=== PATIENT | female | born 1975 | race Caucasian/White ===

== ENCOUNTER 2018-03-31 11:22 | Emergency (ER) | payer SELFPAY ==
[~2018-03-31] VITALS: Ht 167.6 cm; Wt 56.0 kg
[2018-03-31 11:29] VITALS: BP 136/84
[2018-03-31 11:56] LABS: BASO # 0.1 x10^3/uL (0.0-0.2); BASO % 1 % (0-3); EOS # 0.2 x10^3/uL (0.0-0.7); EOS % 3 % (0-3); HEMATOCRIT 44.8 % (36.0-47.0); HEMOGLOBIN 14.9 g/dL (12.0-15.5); LYMPH # 2.1 x10^3/uL (1.0-4.8); LYMPH % 32 % (24-48); MEAN CORPUSCULAR HEMOGLOBIN 31 pg (25-35); MEAN CORPUSCULAR HGB CONC 33 g/dL (31-37); MEAN CORPUSCULAR VOLUME 94 fL (79-100); MONO # 0.4 x10^3/uL (0.0-1.1); MONO % 6 % (0-9); NEUT # 3.9 x10^3uL (1.8-7.7); NEUT % 60 % (31-73); PLATELET COUNT 253 x10^3/uL (140-400); RED BLOOD COUNT 4.79 x10^6/uL (3.50-5.40); RED CELL DISTRIBUTION WIDTH 13.1 % (11.5-14.5); WHITE BLOOD COUNT 6.6 x10^3/uL (4.0-11.0)
--- NOTE | 2018-03-31 11:56 | PHYS DOC ---
Past History Past Medical History: Other Past Surgical History: Appendectomy, , Other Alcohol Use: Occasionally Drug Use: Marijuana Adult General Chief Complaint Chief Complaint: ABDOMINAL PAIN HPI HPI 42-year-old female presents with lower abdominal pain. Patient has had increasing pain for last couple of months. She describes it as a cramping sensation like he would have with menstruation. She had an ablation in 2014. She has not had regular menses since then. She does get some occasional light spotting. The pain doesn't seem to correlate with the spotting. It has no correlation with eating or not eating. She is concerned because it just seems to be gradually increasing. She has been taking Tylenol and ibuprofen. She denies dysuria or increased urinary frequency. Denies vaginal discharge. She does have some intermittent nausea, but is able to eat. She has had an overall decreased appetite the last couple months. She believes she may have lost up to 10 pounds. The patient has felt overall fatigue more frequently. Review of Systems Review of Systems Constitutional: Denies fever or chills [] Eyes: Denies change in visual acuity, redness, or eye pain [] HENT: Denies nasal congestion or sore throat [] Respiratory: Denies cough or shortness of breath [] Cardiovascular: No additional information not addressed in HPI [] GI: Lower abdominal pain, nausea. Denies vomiting, bloody stools or diarrhea [] : Denies dysuria or hematuria [] Musculoskeletal: Denies back pain or joint pain [] Integument: Denies rash or skin lesions [] Neurologic: Denies headache, focal weakness or sensory changes [] Endocrine: Denies polyuria or polydipsia [] All other systems were reviewed and found to be within normal limits, except as documented in this note. Current Medications Current Medications Current Medications Medications (Trade) Dose Ordered Sig/Dee Start Time Stop Time Status Last Admin Dose Admin Iohexol (Omnipaque 300 Mg/ml) 75 ml 1X ONCE 03/31/18 12:00 03/31/18 12:01 UNV Allergies Allergies Allergies Coded Allergies Type Severity Reaction Last Updated Verified meperidine Allergy Unknown 11/13/14 Yes penicillin Allergy Unknown 11/13/14 Yes Physical Exam Physical Exam Constitutional: Well developed, well nourished, no acute distress, non-toxic appearance. [] HENT: Normocephalic, atraumatic, bilateral external ears normal, oropharynx moist, no oral exudates, nose normal. [] Eyes: PERRLA, EOMI, conjunctiva normal, no discharge. [] Neck: Normal range of motion, no tenderness, supple, no stridor. [] Cardiovascular:Heart rate regular rhythm, no murmur [] Lungs & Thorax: Bilateral breath sounds clear to auscultation [] Abdomen: Suprapubic abdominal pain, soft, no rebound or guarding. [] Skin: Warm, dry, no erythema, no rash. [] Back: No tenderness, no CVA tenderness. [] Extremities: No tenderness, no cyanosis, no clubbing, ROM intact, no edema. [] Neurologic: Alert and oriented X 3, normal motor function, normal sensory function, no focal deficits noted. [] Psychologic: Affect normal, judgement normal, mood normal. [] Current Patient Data Vital Signs Vital Signs Date Time Temp Pulse Resp B/P (MAP) Pulse Ox O2 Delivery O2 Flow Rate FiO2 03/31/18 11:29 98.2 72 20 100 Room Air EKG EKG [] Radiology/Procedures Radiology/Procedures [] Impressions: PQRS Compliance Statement: One or more of the following individualized dose reduction techniques were utilized for this examination: 1. Automated exposure control 2. Adjustment of the mA and/or kV according to patient size 3. Use of iterative reconstruction technique CT abdomen/pelvis with contrast 03/31/2018 12:00 PM INDICATION: Lower pelvic pain and cramping. Worse on left side. COMPARISON: None available TECHNIQUE: Multiple axial CT images of the abdomen and pelvis were obtained after the intravenous administration of 75 Omnipaque 300 mL Isovue-370. Coronal and sagittal reformats are provided. FINDINGS: Visualized portions of the lung bases are clear. Heart size is within normal limits. No suspicious hepatic masses are identified. Liver is homogeneous in enhancement. Spleen, bilateral adrenal glands, and pancreas are normal in appearance. Gallbladder is present without adjacent inflammatory changes. The abdominal aorta is normal in course and caliber. There are no pathologically enlarged lymph nodes in the abdomen and pelvis. There is no abdominal free fluid. There is no free intraperitoneal air. The kidneys enhance symmetrically. There is no suspicious renal mass. There is no hydronephrosis. There are no suspected calculi within the kidneys, ureters or urinary bladder. The appendix not definitively visualized. Small and large bowel are normal in caliber. There is no evidence for bowel obstruction. There are no pericolonic inflammatory changes. No pericecal inflammatory changes are identified. Urinary bladder is within normal limits given degree of distention. Tubal ligation devices are identified bilaterally. Follicular changes are identified in the adnexa bilaterally. Trace pelvic free fluid is presumed physiologic. No suspicious osseous abnormality is identified. IMPRESSION: 1. Uterus and adnexa are normal by CT. Follicular changes are identified bilaterally. Trace pelvic free fluid may be physiologic. 2. No evidence for bowel obstruction or inflammation. Appendix is not definitively visualized. Electronically signed by: Louie Mckenzie MD (03/31/2018 12:25 PM) [facility] DICTATED AND SIGNED BY: LOUIE MCKENZIE MD DATE: 03/31/18 1220 CC: YENY BORJAS DO; PCP,SHAKIRA Course & Med Decision Making Course & Med Decision Making Pertinent Labs and Imaging studies reviewed. (See chart for details) Patient's labs are unremarkable. Her urinalysis is negative for infection. Her CT scan shows focal or changes in the adnexa and trace free fluid, but this is thought to be physiologic. The uterus appears normal. See official report above for more details. I am unsure of the nature the patient's pain. She does have a history of endometriosis. This is a possibility. I have strongly recommended that she work on getting insurance, establish with a PCP, [employer]. She is stable for discharge at this time. [] Dragon Disclaimer Dragon Disclaimer This electronic medical record was generated, in whole or in part, using a voice recognition dictation system. Departure Departure: Referrals: PCPSHAKIRA (PCP) Scripts Hydrocodone Bit/Acetaminophen (NORCO 5-325 TABLET) 1 Each Tablet 1 TAB PO PRN Q6HRS PRN for PAIN, #10 TAB 0 Refills Prov: YENY BORJAS DO 03/31/18 YENY BORJAS DO Mar 31, 2018 11:56
[2018-03-31 12:00] LABS: BACTERIA,URINE FEW /HPF (0-FEW); BILIRUBIN,URINE NEG (NEG); CLARITY,URINE CLEAR; COLOR,URINE YELLOW; GLUCOSE,URINE NEG (NEG); NITRITE,URINE NEG (NEG); SQUAMOUS EPITHELIAL CELL,UR FEW /LPF; UROBILINOGEN,URINE 0.2 mg/dL (0.2 mg/dL); WBC,URINE OCC /HPF (0-4)
[2018-03-31] MEDS ORDERED: IOHEXOL 300 MG/ML 75 ML VIAL. IV ONE (12:00)
[2018-03-31 12:01] LABS: U PREG PATIENT NEGATIVE (NEG)
[2018-03-31 12:01] LABS: ALBUMIN 3.8 g/dL (3.4-5.0); ALBUMIN/GLOBULIN RATIO 1.2 (1.0-1.7); CALCIUM 8.8 mg/dL (8.5-10.1); CREATININE 0.7 mg/dL (0.6-1.0); GFR 92.7; POTASSIUM 4.1 mmol/L (3.5-5.1); TOTAL BILIRUBIN 0.4 mg/dL (0.2-1.0); TOTAL PROTEIN 6.9 g/dL (6.4-8.2)
--- NOTE | 2018-03-31 12:29 | RAD ---
PQRS Compliance Statement: One or more of the following individualized dose reduction techniques were utilized for this examination: 1. Automated exposure control 2. Adjustment of the mA and/or kV according to patient size 3. Use of iterative reconstruction technique CT abdomen/pelvis with contrast 03/31/2018 12:00 PM INDICATION: Lower pelvic pain and cramping. Worse on left side. COMPARISON: None available TECHNIQUE: Multiple axial CT images of the abdomen and pelvis were obtained after the intravenous administration of 75 Omnipaque 300 mL Isovue-370. Coronal and sagittal reformats are provided. FINDINGS: Visualized portions of the lung bases are clear. Heart size is within normal limits. No suspicious hepatic masses are identified. Liver is homogeneous in enhancement. Spleen, bilateral adrenal glands, and pancreas are normal in appearance. Gallbladder is present without adjacent inflammatory changes. The abdominal aorta is normal in course and caliber. There are no pathologically enlarged lymph nodes in the abdomen and pelvis. There is no abdominal free fluid. There is no free intraperitoneal air. The kidneys enhance symmetrically. There is no suspicious renal mass. There is no hydronephrosis. There are no suspected calculi within the kidneys, ureters or urinary bladder. The appendix not definitively visualized. Small and large bowel are normal in caliber. There is no evidence for bowel obstruction. There are no pericolonic inflammatory changes. No pericecal inflammatory changes are identified. Urinary bladder is within normal limits given degree of distention. Tubal ligation devices are identified bilaterally. Follicular changes are identified in the adnexa bilaterally. Trace pelvic free fluid is presumed physiologic. No suspicious osseous abnormality is identified. IMPRESSION: 1. Uterus and adnexa are normal by CT. Follicular changes are identified bilaterally. Trace pelvic free fluid may be physiologic. 2. No evidence for bowel obstruction or inflammation. Appendix is not definitively visualized. Electronically signed by: Dee Mckenzie MD (03/31/2018 12:25 PM) [facility]
[2018-03-31] MEDS ORDERED: HYDR-3165 PO (13:23)
== END 2018-03-31 13:15 | disposition home or self-care (01) ==
LOC: ER 11:22
DX: R10.2 Pelvic and perineal pain (principal); R10.30 Lower abdominal pain, unspecified; R11.0 Nausea; Z90.89 Acquired absence of other organs; Z98.890 Other specified postprocedural states; Z88.0 Allergy status to penicillin; Z88.8 Allergy status to other drugs, medicaments and biological substances
CPT/HCPCS: 36415; 74177; 80053; 81001; 81025; 85025; 99284; Q9967

== ENCOUNTER 2018-04-13 07:15 | Emergency (ER) | payer SELFPAY ==
[~2018-04-13] VITALS: Ht 167.6 cm; Wt 56.0 kg
[2018-04-13 07:15] VITALS: BP 122/67
[~2018-04-13 07:15] MED LIST: HYDR-3165 PO
--- NOTE | 2018-04-13 07:31 | PHYS DOC ---
Past History Past Medical History: Other Past Surgical History: Appendectomy, , Other Alcohol Use: Occasionally Drug Use: Marijuana Adult General Chief Complaint Chief Complaint: EARACHE/EAR PAIN HPI HPI 42-year-old female presents with sudden onset of left ear pain. The patient woke up overnight with left-sided ear pain. She has had viral URI symptoms such as congestion, cough, and runny nose for about one week. She has not had decrease in her hearing or ear pain until early this morning. Patient states that it feels like heavy pressure in her ear. It has made her mildly nauseous. She denies fever or chills at home. Review of Systems Review of Systems Constitutional: Denies fever or chills [] Eyes: Denies change in visual acuity, redness, or eye pain [] HENT: Denies nasal congestion or sore throat. [] Respiratory: Denies cough or shortness of breath [] Cardiovascular: No additional information not addressed in HPI [] GI: Denies abdominal pain, nausea, vomiting, bloody stools or diarrhea [] : Denies dysuria or hematuria [] Musculoskeletal: Denies back pain or joint pain [] Integument: Denies rash or skin lesions [] Neurologic: Denies headache, focal weakness or sensory changes [] Endocrine: Denies polyuria or polydipsia [] All other systems were reviewed and found to be within normal limits, except as documented in this note. Allergies Allergies Allergies Coded Allergies Type Severity Reaction Last Updated Verified meperidine Allergy Unknown 11/13/14 Yes penicillin Allergy Unknown 11/13/14 Yes Physical Exam Physical Exam Constitutional: Well developed, well nourished, no acute distress, non-toxic appearance. [] HENT: Normocephalic, atraumatic, bilateral external ears normal, oropharynx moist, no oral exudates, nose normal. Left tympanic membrane erythematous and bulging [] Eyes: PERRLA, EOMI, conjunctiva normal, no discharge. [] Neck: Normal range of motion, no tenderness, supple, no stridor. [] Cardiovascular:Heart rate regular rhythm, no murmur [] Lungs & Thorax: Bilateral breath sounds clear to auscultation [] Abdomen: Bowel sounds normal, soft, no tenderness, no masses, no pulsatile masses. [] Skin: Warm, dry, no erythema, no rash. [] Back: No tenderness, no CVA tenderness. [] Extremities: No tenderness, no cyanosis, no clubbing, ROM intact, no edema. [] Neurologic: Alert and oriented X 3, normal motor function, normal sensory function, no focal deficits noted. [] Psychologic: Affect normal, judgement normal, mood normal. [] EKG EKG [] Radiology/Procedures Radiology/Procedures [] Course & Med Decision Making Course & Med Decision Making Pertinent Labs and Imaging studies reviewed. (See chart for details) Patient appears to have a left otitis media. She has an allergy to penicillin that is a rash. I'll prescribe Cefdinir for 10 days. [] Dragon Disclaimer Dragon Disclaimer This electronic medical record was generated, in whole or in part, using a voice recognition dictation system. Departure Departure: Referrals: PCPSHAKIRA (PCP) YENY BORJAS DO Apr 13, 2018 07:31
[2018-04-13] MEDS ORDERED: CEFD300C PO (07:34)
== END 2018-04-13 07:39 | disposition home or self-care (01) ==
LOC: ER 07:15
DX: H66.92 Otitis media, unspecified, left ear (principal); Z88.0 Allergy status to penicillin; Z88.8 Allergy status to other drugs, medicaments and biological substances
CPT/HCPCS: 99283

== ENCOUNTER 2020-02-23 21:33 | Emergency (ER) | payer OTHER ==
[~2020-02-23] VITALS: Ht 167.6 cm; Wt 57.5 kg
[~2020-02-23 21:33] MED LIST changes: +CEFD300C PO
--- NOTE | 2020-02-23 21:56 | PHYS DOC ---
Past History Past Medical History: Anemia, Anxiety, GERD, Other Past Surgical History: Appendectomy, , Tubal ligation, Other Past Surgical History Uterine ablation, tubal ligation done with coils Smoking: Cigarettes Alcohol Use: Occasionally Drug Use: Marijuana General Adult EDM: Chief Complaint: CHEST PAIN HPI: HPI: ".. I ve been having this chest discomfort... for a few days .. now... just feels..off...".." Just not been right since about sunday.. reflux..my abdomen up set.. some diarrhea... it just the chest discomfort constant.." Patient is a 44 year old female who presents with above hx and complaints malaise, myalgia, arthralgia, chest discomfort, increased reflux, and dyspnea. Pt. states symptoms started on Sunday. Pt. was evaluated at [facility] for the chest discomfort and malaise on 02/20/20. Reportedly x-rays and labs at that time showed no acute findings. [place] her chest discomfort at the time was chest wall. Was advised to take naproxen twice a day for discomfort follow-up with primary care. Patient was prescribed a course of Zithromax and nasal steroid and MDI. Patient yet has not been able to schedule a primary care visit but because of persistent discomfort presented to the emergency department tonight for further evaluation. Patient denies any previous history of cardiac disorder. Patient does have a history of reflux. Has had past history of anemia caused by vaginal bleeding and eventually had an ablation. Patient also has history of endometriosis. Patient does still smoke and attempting to reduce tobacco use. Patient has not had flu vaccination or Pneumovax. No recent travel outside of [facility]. No specific ill contacts other than exposed to grandson who had episode of diarrhea and fever. Review of Systems: Review of Systems: Constitutional: Subjective fever or chills Eyes: Denies change in visual acuity HENT: History of nasal congestion and sore throat Respiratory: History of nonproductive cough and shortness of breath Cardiovascular: History of a chest discomfort GI: Denies abdominal pain, , vomiting, bloody stools or diarrhea . Complains of nausea and reflux. No history of tarry stools. : Denies dysuria Musculoskeletal: Complains of generalized myalgia and arthralgia Integument: Denies rash Neurologic: Denies headache, focal weakness or sensory changes Endocrine: Denies polyuria or polydipsia Lymphatic: Denies swollen glands Psychiatric: Complains of anxiety Family History: Family History: There is family history of cardiac disorders starting age 50s Current Medications: Current Meds: See nursing for home meds Allergies: Allergies: Allergies Coded Allergies Type Severity Reaction Last Updated Verified meperidine Allergy Intermediate 02/23/20 Yes penicillin Allergy Intermediate 02/23/20 Yes Physical Exam: PE: Constitutional: Moderate distress, non-toxic appearance. [] HENT: Normocephalic, atraumatic, bilateral external ears normal, oropharynx moist, mild injection of pharynx postnasal drainage, no oral exudates, nose swollen turbinates with clear rhinorrhea Eyes: PERRLA, EOMI, conjunctiva normal, no discharge. [] Neck: Normal range of motion, no tenderness, supple, no stridor. [] Cardiovascular:Heart rate regular rhythm, no murmur [] Lungs & Thorax: Bilateral breath sounds equal apex with scattered wheezes on auscultation [] Abdomen: Bowel sounds normal, soft, no tenderness, no masses, no pulsatile masses. Old surgical scar Skin: Warm, dry, no erythema, no rash. [] Back: No tenderness, no CVA tenderness. [] Extremities: No tenderness, no cyanosis, no clubbing, ROM intact, no edema. No cording appreciated Neurologic: Alert and oriented X 3, normal motor function, normal sensory function, no focal deficits noted. [] Psychologic: Affect anxious, judgement normal, mood normal. [] EKG: EKG: My interpretation of EKG shows a sinus rhythm at 82 bpm. Does have a slightly prolonged [place] interval of 214 ms. No findings of acute STEMI with contralateral changes. [] Radiology/Procedures: Radiology/Procedures: [][address] [address] IMAGING REPORT Signed PATIENT: SOHAIL LOZAUNT: [id number] : 1975 LOCATION: ER AGE: 44 SEX: F EXAM STATUS: REG ER ORD. PHYSICIAN: FADIA MUNROE MD REASON: cp PROCEDURE: PORTABLE CHEST 1V Exam: Chest one view INDICATION: Chest pain TECHNIQUE: Frontal view of the chest Comparisons: None FINDINGS: The cardiomediastinal silhouette and pulmonary vessels are within normal limits. The lung and pleural spaces are clear. IMPRESSION: No acute cardiopulmonary process. Electronically signed by: Noy Oliveira MD (02/23/2020 11:16 PM) [facility] DICTATED AND SIGNED BY: NOY OLIVEIRA MD DATE: 02/23/20 2834 CC: FADIA MUNROE MD; PCP,NO ~ Heart Score: HEART Score for Chest Pain: HEART Score for Chest Pain Response (Comments) Value History Slighlty/Non-Suspicious 0 ECG Normal 0 Age < 45 0 Risk Factors 1 or 2 Risk Factors 1 Troponin < Normal Limit 0 Total 1 Risk Factors: Risk Factors: DM, Current or recent (<one month) smoker, HTN, HLP, family history of CAD, obesity. Risk Scores: Score 0 - 3: 2.5% MACE over next 6 weeks - Discharge Home Score 4 - 6: 20.3% MACE over next 6 weeks - Admit for Clinical Observation Score 7 - 10: 72.7% MACE over next 6 weeks - Early Invasive Strategies Course & Med Decision Making: Course & Med Decision Making Pertinent Labs and Imaging studies reviewed. (See chart for details) Reviewed labs and EKG and x-rays with patient. Patient declined admission at this time. Patient reports improvement of symptoms. Patient take meds as previous directed. Patient can schedule a follow-up at [facility]. Encourage patient to continue her attempts to stop smoking. Patient to go on a clear fluid diet for the next couple days. Take Pepcid twice a day. Keep follow-up with primary care. Return if any concerns. Take Zofran for nausea as needed. Patient self isolate for 10 days. Wear a mask when around others that covers her nose and mouth at all times. Impression: 1. Viral Syndrome 2. GERD 3. Chest discomfort [] Dragon Disclaimer: Dragon Disclaimer: This electronic medical record was generated, in whole or in part, using a voice recognition dictation system. Departure Departure: Referrals: PCPSHAKIRA (PCP) Scripts Ondansetron Hcl (ZOFRAN) 4 Mg Tablet 8 MG PO QIDPRN PRN for NAUSEA/VOMITING, #30 TAB Prov: FADIA MUNROE MD 02/24/20 Famotidine (PEPCID) 20 Mg Tablet 20 MG PO BID for GERD for 30 Days, #60 TAB Prov: FADIA MUNROE MD 02/24/20 Perez Disclaimer This chart was dictated in whole or in part using Voice Recognition software in a busy, high-work load, and often noisy Emergency Department environment. It may contain unintended and wholly unrecognized errors or omissions. FADIA MUNROE MD Feb 23, 2020 21:56
[2020-02-23] MEDS ORDERED: IV RINGERS SOLUTION,LACTATED 1,000 ML IV SCH (21:58)
[2020-02-23] MEDS ORDERED: ASPIRIN CHEWABLE 81 MG TABLET. PO ONE (22:30)
--- NOTE | 2020-02-23 23:18 | RAD ---
Exam: Chest one view INDICATION: Chest pain TECHNIQUE: Frontal view of the chest Comparisons: None FINDINGS: The cardiomediastinal silhouette and pulmonary vessels are within normal limits. The lung and pleural spaces are clear. IMPRESSION: No acute cardiopulmonary process. Electronically signed by: Noy Aquino MD (02/23/2020 11:16 PM) [facility]
[2020-02-24 00:04] LABS: BASO # 0.1 x10^3/uL (0.0-0.2); BASO % 1 % (0-3); EOS # 0.3 x10^3/uL (0.0-0.7); EOS % 4 % (0-3); HEMATOCRIT 41.5 % (36.0-47.0); LYMPH # 2.7 x10^3/uL (1.0-4.8); LYMPH % 44 % (24-48); MEAN CORPUSCULAR HEMOGLOBIN 32 pg (25-35); MEAN CORPUSCULAR HGB CONC 34 g/dL (31-37); MEAN CORPUSCULAR VOLUME 94 fL (79-100); MONO # 0.4 x10^3/uL (0.0-1.1); MONO % 7 % (0-9); NEUT # 2.6 x10^3uL (1.8-7.7); NEUT % 44 % (31-73); PLATELET COUNT 245 x10^3/uL (140-400); RED BLOOD COUNT 4.41 x10^6/uL (3.50-5.40); RED CELL DISTRIBUTION WIDTH 12.7 % (11.5-14.5)
[2020-02-24 00:15] LABS: CALCIUM 8.7 mg/dL (8.5-10.1); CREATININE 0.9 mg/dL (0.6-1.0); GFR 68.7; POTASSIUM 3.7 mmol/L (3.5-5.1)
[2020-02-24 00:28] LABS: DIRECT BILIRUBIN 0.1 mg/dL (0.0-0.2); MAGNESIUM 2.1 mg/dL (1.8-2.4); TOTAL BILIRUBIN 0.3 mg/dL (0.2-1.0); TOTAL PROTEIN 7.1 g/dL (6.4-8.2)
[2020-02-24 00:46] VITALS: BP 122/83
[2020-02-24] MEDS ORDERED: ONDA4TAB7 PO (01:14)
[2020-02-24] MEDS ORDERED: FAMO-63 PO (01:14)
[2020-02-24] MEDS ORDERED: FAMOTIDINE 20 MG/2 ML VIAL ONE (01:17)
[2020-02-24] MEDS ORDERED: FAMOTIDINE 20 MG/2 ML VIAL IVP ONE (01:30)
[2020-02-24] MEDS ORDERED: ONDANSETRON PF 4 MG/2 ML VIAL. IVP ONE (01:30)
--- NOTE | 2020-02-24 02:03 | EKG ---
[address] [address] Test Date: 2020-02-23 Test Time: 21:42:15 Pat Name: SOHAIL LOZA Department: Room: Gender: F Training Officer: AMBERLY : 1975 Requested By: FADIA MUNROE Order Number: [id number] Reading MD: Measurements Intervals [place] Rate: 82 P: 73 WA: 214 QRS: 90 QRSD: 76 T: 66 QT: 364 QTc: 428 Interpretive Statements SINUS RHYTHM PROLONGED WA INTERVAL ABNORMAL ECG RI6.02 No previous ECG available for comparison
[2020-02-24 14:37] LABS: THYROID STIM HORMONE (TSH) 1.921 uIU/mL (0.358-3.740)
== END 2020-02-24 01:34 | disposition home or self-care (01) ==
LOC: ER 21:33
DX: B34.9 Viral infection, unspecified (principal); K21.9 Gastro-esophageal reflux disease without esophagitis; R07.89 Other chest pain; F17.210 Nicotine dependence, cigarettes, uncomplicated; F41.9 Anxiety disorder, unspecified; Z90.49 Acquired absence of other specified parts of digestive tract; Z98.890 Other specified postprocedural states; Z98.51 Tubal ligation status; Z88.0 Allergy status to penicillin; Z88.8 Allergy status to other drugs, medicaments and biological substances
CPT/HCPCS: 36415; 71045; 80048; 80061; 80076; 82550; 83690; 83735; 83880; 84443; 84484; 85025; 85379; 85610; 85730; 93005; 96361; 96374; 96375; 99285; J2405; J3490; J7120; 96360